=== PATIENT | female | born 2000 | race Caucasian/White ===

== ENCOUNTER 2023-05-21 20:51 | Emergency (ER) | payer OTHER, BC, MEDICAID, SELFPAY ==
[2023-05-21 20:55] VITALS: BP 194/123; PULSE 103; RESP 22; TEMP 36.8; O2SAT 98; BMI 62.1
--- NOTE | 2023-05-21 22:29 | ED_ITS ---
HPI - General Adult General: Chief complaint: General Medical Stated complaint: Stiches Infected Time Seen by Provider: 05/21/23 21:43 History of Present Illness: Breonna is a 23-year-old [id number] female that presents to the emergency department for suture removal. Patient states she had carpal tunnel release on 05/06/2023 and was instructed to remove the sutures after 14 days. Patient attempted but was unsuccessful at removing all the sutures. The wound margins are well approximated without erythema warmth or drainage. Review of Systems General: Reports: 10 or more systems reviewed and unremarkable except in HPI and below Physical Exam Narrative: EXAM NARRATIVE: No acute distress Alert and oriented x3 Afebrile vital signs stable Nonlabored breathing Nontender abdomen Moving all extremities Sutures?2 of 3 horizontal mattress sutures remain in the left wrist. The area is well approximated without erythema warmth or drainage Course Vital Signs: Vital signs: Vital Signs Temperature 98.2 F 05/21/23 20:55 Pulse Rate 103 H 05/21/23 20:55 Respiratory Rate 22 H 05/21/23 20:55 Blood Pressure 194/123 05/21/23 20:55 Pulse Oximetry 98 05/21/23 20:55 Oxygen Delivery Me thod Room Air 05/21/23 20:55 MDM - General Adult Medical Decision Making Sutures removed. No evidence of infection No radiology studies performed this visit Discharge Plan Discharge Patient Disposition: Home Clinical Impression: Encounter for removal of sutures Condition: Stable Prescriptions: No Action [id number]-[id number]-SE 3.5-10,000-1 mg/mL-unit/mL-% drops,suspension 3 drp otic (ear) metformin 500 mg tablet extended release 24 hr PO levothyroxine 100 mcg tablet 100 mcg PO Jardiance 10 mg tablet PO lisinopril 20 mg tablet PO amoxicillin-pot clavulanate 875-125 mg tablet 1 tab PO BID 7 Days Qty: 14 0RF Discharge Orders: Discharge ED (Routine); Ordered 05/21/23 Ordered By: Chema Vo Referrals: Flores Choudhury MD [Primary Care Provider] - Discharge Diet: Advance as tolerated Discharge Activity: Resume usual activity Patient Instructions: Pain Management Coding Level of Care Code ED Personalized Living Manager for Trevon Dudley
[2023-05-21 22:40] VITALS: BP 194/123; PULSE 103; RESP 22; TEMP 36.8; O2SAT 98
== END 2023-05-21 22:42 | disposition home or self-care (01) ==
PROVIDERS: Emergency Provider Nurse Practitioner; PCP Family Medicine
DX: Z48.02 Encounter for removal of sutures (principal)
CPT/HCPCS: 99281